=== PATIENT | male | born 1970 | race Two or more races ===

== ENCOUNTER 2022-07-20 14:35 | Emergency (ER) | payer SELFPAY ==
[~2022-07-20] VITALS: Ht 170.2 cm; Wt 95.5 kg
[2022-07-20] MEDS ORDERED: LIDOCAINE 1% HCL (LOCAL ANESTH.) INJ 20ML MDV IJ ONE (16:00)
[2022-07-20 16:37] VITALS: BP 142/87
[2022-07-20] MEDS ORDERED: TETANUS-DIPTH-ACEL PERTUSSIS 0.5ML SYR Tdap IM ONE (17:15)
[2022-07-20] MEDS ORDERED: CEPH-510 PO (17:33)
[2022-07-20] MEDS ORDERED: IBUP800T27 PO (17:33)
== END 2022-07-20 17:53 | disposition home or self-care (01) ==
LOC: ER 14:39
DX: S61.512A Laceration without foreign body of left wrist, initial encounter (principal); W26.9XXA Contact with unspecified sharp object(s), initial encounter; Y93.89 Activity, other specified; Y92.89 Other specified places as the place of occurrence of the external cause; Y99.8 Other external cause status
CPT/HCPCS: 12002; 90471; 90715; 99283; J2001

== ENCOUNTER 2022-07-22 14:26 | Emergency (ER) | payer SELFPAY ==
[~2022-07-22] VITALS: Ht 170.2 cm; Wt 102.0 kg
[~2022-07-22 14:26] MED LIST: CEPH-510 PO; IBUP800T27 PO
[2022-07-22 18:49] VITALS: BP 136/75
== END 2022-07-22 19:06 | disposition home or self-care (01) ==
LOC: ER 14:28
DX: S61.512D Laceration without foreign body of left wrist, subsequent encounter (principal); X58.XXXD Exposure to other specified factors, subsequent encounter